=== PATIENT | female | born 1940 | race African-American/Black ===

== ENCOUNTER 2016-10-19 06:07 | Emergency (ER) | payer OTHER, MEDICARE ==
[~2016-10-19] VITALS: Ht 157.5 cm; Wt 68.0 kg
--- NOTE | ~2016-10-19 | EKG ---
[place] [address] [facility] [place] [address] ELECTROCARDIOGRAM REPORT Name: RADHA ALMANZA Room #: DEP [facility]#: [id number] Admission: 10/19/16 Attend Phys: Discharge: 10/19/16 Date of : 38 Report #: [id number] THIS REPORT FOR: //name// [facility] ED Test Date: 2016-10-19 Test Time: 06:28:33 Pat Name: RADHA ALMANZA Department: Room: Gender: F Electronic Equipment Set Up Operator: OLIVIA : 1940 Requested By: Chico Segura Order Number: [id number] MD: Manish Marin Measurements Intervals [place] Rate: 76 P: 54 [place]: 130 QRS: -27 QRSD: 82 T: 15 QT: 390 QTc: 439 Interpretive Statements Sinus rhythm Borderline left axis deviation Borderline T abnormalities, anterior leads Compared to ECG 05/14/2016 11:47:34 No significant changes Electronically Signed On 10-19-2016 13:51:05 OPTOMETRIC ASSISTANT by Manish Marin [email or web address] <ELECTRONICALLY SIGNED> By: Manish Marin MD, [facility] 10/19/16 1351 7 7 aMnish Marin MD, [facility] /EPI
[~2016-10-19 06:07] MED LIST: ASPIR 8181 MG PO; CIPRO500 MG PO; CIPROFLOXACIN500 M1 PO; DUONEB 2.5-0.5 M3 ML INH; FOSAMAX 70 MG T70 MG PO; GLUCOTROL5 MG PO; IRON325 PO; KEFLEX500 MG PO; KLOR-CON 1010 MEQ PO; LASIX 20 MG TAB20 MG PO; LEVOTHYROXINE 0.15MG PO; LIPITOR10 MG PO; NEURONTIN 300300 M1 PO; NORCO 5-325 TA1 EACH PO; PREDNISONE 5 MG5 M1 PO; ROCEPHIN 11 GM/1001 IV; VITAMIN D400 UNI2 PO
[2016-10-19] MEDS ORDERED: [UNRECOGNIZED DRUG - OTHER] IJ (06:45)
[2016-10-19 06:59] LABS: URINE BILIRUBIN NEGATIVE (Negative); URINE BLOOD NEGATIVE (Negative); URINE COLOR YELLOW; URINE GLUCOSE-RANDOM* NEGATIVE (Negative); URINE KETONES NEGATIVE (Negative); URINE LEUKOCYTES-REFLEX NEGATIVE (Negative); URINE PROTEIN (DIPSTICK) NEGATIVE (Negative)
[2016-10-19 07:09] LABS: HEMATOCRIT 36.2 % (37.0-47.0); HEMOGLOBIN 12.3 gm/dL (12.0-15.0); MCH 31.2 pg (26.0-34.0); MCV 91.7 fL (80.0-100.0); PLATELET COUNT 76 thou/uL (150-400); RBC 3.95 mil/uL (4.20-5.00); RDW 18.3 % (10.5-14.5); WBC 3.6 thou/uL (4.0-11.0)
[2016-10-19 07:17] LABS: MANUAL DIFF YES
[2016-10-19 07:20] LABS: ANION GAP 9 mmol/L (7-16); BUN 14 mg/dL (7-18); CALCIUM 8.2 mg/dL (8.5-10.1); CHLORIDE 114 mmol/L (98-107); CO2 24 mmol/L (21-32); CREATININE 0.9 mg/dL (0.6-1.3); GLUCOSE 114 mg/dL (70-99); POTASSIUM 4.8 mmol/L (3.5-5.1); SODIUM 147 mmol/L (136-145)
[2016-10-19 07:30] LABS: ALBUMIN 2.2 g/dL (3.4-5.0); ALKALINE PHOSPHATASE 236 U/L (46-116); MAGNESIUM 1.9 mg/dL (1.8-2.4); SGOT 140 U/L (15-37); SGPT 76 U/L (30-65); TOTAL BILIRUBIN 2.7 mg/dL (<0.1-1.0); TOTAL PROTEIN 6.5 g/dL (6.4-8.2); TROPONIN-I < 0.04 ng/mL (<0.04-0.07)
[2016-10-19 08:04] LABS: ABSOLUTE NEUTROPHILS 1.6 thou/uL (1.4-8.2); TOTAL CELL COUNT 100
[2016-10-19 08:05] LABS: ANISOCYTOSIS 1+; POIKILOCYTOSIS 1+
[2016-10-19 08:06] LABS: POLYCHROMASIA SLIGHT
[2016-10-19] MEDS ORDERED: LACTULOSE10 GM/152 PO (11:09)
[2016-10-19 11:11] VITALS: BP 110/70
== END 2016-10-19 11:30 | disposition home or self-care (01) ==
LOC: ER 06:07
PROVIDERS: Emergency Medicine
DX: K74.60 Unspecified cirrhosis of liver (principal); G93.40 Encephalopathy, unspecified; D86.9 Sarcoidosis, unspecified; E11.9 Type 2 diabetes mellitus without complications; M81.0 Age-related osteoporosis without current pathological fracture; Z88.0 Allergy status to penicillin

== ENCOUNTER 2017-01-08 16:57 | Inpatient (IN) | payer OTHER, MEDICARE ==
[~2017-01-08] VITALS: Ht 157.5 cm; Wt 81.3 kg
[~2017-01-08 16:57] MED LIST changes: +LACTULOSE10 GM/152 PO; +[UNRECOGNIZED DRUG - OTHER] IJ
[2017-01-08 17:00] VITALS: BP 107/51
[2017-01-08] MEDS ORDERED: LEVOTHYROXIN0.075 MG PO (18:19)
[2017-01-08 18:33] LABS: ABSOLUTE NEUTROPHILS 6.4 thou/uL (1.4-8.2); BASOPHILS 0.1 % (0.0-2.0); EOSINOPHILS 9.1 % (0.0-3.0); HEMATOCRIT 30.5 % (37.0-47.0); HEMOGLOBIN 10.8 gm/dL (12.0-15.0); LYMPHOCYTES 10.8 % (24.0-44.0); MCH 31.8 pg (26.0-34.0); MCHC 35.4 g/dL (28.0-37.0); MONOCYTES 5.6 % (1.0-8.0); POLYS 74.4 % (36.0-66.0); RBC 3.39 mil/uL (4.20-5.00); RDW 21.8 % (10.5-14.5); WBC 8.6 thou/uL (4.0-11.0)
[2017-01-08 18:34] LABS: MANUAL DIFF NO
[2017-01-08 18:37] LABS: CALCIUM 7.8 mg/dL (8.5-10.1); CREATININE 1.5 mg/dL (0.6-1.0); POTASSIUM 4.4 mmol/L (3.5-5.1)
[2017-01-08 18:48] LABS: ALBUMIN 1.5 g/dL (3.4-5.0); DIRECT BILIRUBIN 8.7 mg/dL (<0.1-0.3); TOTAL BILIRUBIN 11.3 mg/dL (<0.1-1.0); TOTAL PROTEIN 5.9 g/dL (6.4-8.2)
[2017-01-08 19:02] LABS: PLATELET COUNT 66 thou/uL (150-400); PLATELET ESTIMATE DECREASED
[2017-01-08 20:19] LABS: URINE BILIRUBIN 2+ (Negative); URINE BLOOD NEGATIVE (Negative); URINE COLOR YELLOW; URINE GLUCOSE-RANDOM* NEGATIVE (Negative); URINE KETONES NEGATIVE (Negative); URINE LEUKOCYTES-REFLEX 1+ (Negative); URINE PROTEIN (DIPSTICK) NEGATIVE (Negative); URINE SPECIFIC GRAVITY 1.015 (1.003-1.035)
[2017-01-08 20:34] LABS: CASTS None Seen /LPF (None Seen); SQUAMOUS 4-10 Moderate /LPF (0-3); URINE RBC 0-2 Rare /HPF (0-2)
[2017-01-08 20:35] LABS: AMORPHOUS URATES Many /LPF (None Seen)
[2017-01-08 21:59] LABS: APTT 38.5 Seconds (24.5-32.8); INR 1.8; PROTIME 19.1 Seconds (9.3-11.4)
[2017-01-08 22:57] VITALS: BP 105/50
[2017-01-08 23:37] VITALS: BP 109/54
[2017-01-09] MEDS ORDERED: XIFAXAN550 M1 PO (01:29)
[2017-01-09] MEDS ORDERED: URSODIOL300 MG PO (01:31)
[2017-01-09 04:05] VITALS: BP 107/49
[2017-01-09 07:25] VITALS: BP 99/53
[2017-01-09 12:11] VITALS: BP 120/58
[2017-01-09 16:49] VITALS: BP 127/76
[2017-01-09 19:31] VITALS: BP 109/67
[2017-01-10 03:48] VITALS: BP 112/62
[2017-01-10 06:58] LABS: HEMOGLOBIN 9.3 gm/dL (12.0-15.0); MCHC 35.9 g/dL (28.0-37.0); RDW 22.3 % (10.5-14.5)
[2017-01-10 07:00] LABS: ABSOLUTE NEUTROPHILS 3.1 thou/uL (1.4-8.2); BASOPHILS 0.4 % (0.0-2.0); EOSINOPHILS 17.3 % (0.0-3.0); LYMPHOCYTES 12.7 % (24.0-44.0); MCH 31.9 pg (26.0-34.0); MCV 88.9 fL (80.0-100.0); MONOCYTES 7.9 % (1.0-8.0); PLATELET COUNT 50 thou/uL (150-400); POLYS 61.7 % (36.0-66.0); RBC 2.92 mil/uL (4.20-5.00)
[2017-01-10 07:01] LABS: MANUAL DIFF NO
[2017-01-10 07:12] LABS: ALBUMIN 1.2 g/dL (3.4-5.0); CALCIUM 7.7 mg/dL (8.5-10.1); CREATININE 1.5 mg/dL (0.6-1.0); MAGNESIUM 1.9 mg/dL (1.8-2.4); POTASSIUM 3.8 mmol/L (3.5-5.1); TOTAL BILIRUBIN 8.6 mg/dL (<0.1-1.0)
[2017-01-10 08:00] VITALS: BP 89/42
[2017-01-10 09:04] LABS: TOTAL PROTEIN 5.3 g/dL (6.4-8.2)
[2017-01-10 11:30] VITALS: BP 111/57
[2017-01-10 15:33] VITALS: BP 132/49
[2017-01-10 18:50] VITALS: BP 104/51
[2017-01-11 04:01] LABS: ALBUMIN 1.2 g/dL (3.4-5.0); CALCIUM 7.7 mg/dL (8.5-10.1); CREATININE 1.5 mg/dL (0.6-1.0); POTASSIUM 4.1 mmol/L (3.5-5.1); TOTAL BILIRUBIN 8.5 mg/dL (<0.1-1.0); TOTAL PROTEIN 5.4 g/dL (6.4-8.2)
[2017-01-11 04:45] VITALS: BP 100/45
[2017-01-11 07:01] VITALS: BP 94/51
[2017-01-11 11:10] VITALS: BP 119/55
[2017-01-11 15:30] VITALS: BP 122/56
[2017-01-11 20:00] VITALS: BP 107/62
[2017-01-12 03:35] VITALS: BP 119/62
[2017-01-12 04:46] LABS: ALBUMIN 1.2 g/dL (3.4-5.0); CALCIUM 7.8 mg/dL (8.5-10.1); CREATININE 1.4 mg/dL (0.6-1.0); POTASSIUM 4.2 mmol/L (3.5-5.1); TOTAL BILIRUBIN 7.4 mg/dL (<0.1-1.0)
[2017-01-12 08:32] VITALS: BP 114/46
[2017-01-12 12:11] VITALS: BP 129/53
[2017-01-12 20:00] VITALS: BP 128/47
[2017-01-13 04:00] VITALS: BP 142/65
[2017-01-13 08:41] VITALS: BP 119/65
[2017-01-13 13:17] VITALS: BP 129/63
[2017-01-13 16:50] VITALS: BP 116/50
[2017-01-13 20:08] VITALS: BP 120/80
[2017-01-14 02:50] LABS: ABSOLUTE NEUTROPHILS 5.1 thou/uL (1.4-8.2); BASOPHILS 0.1 % (0.0-2.0); EOSINOPHILS 0.3 % (0.0-3.0); HEMATOCRIT 28.2 % (37.0-47.0); HEMOGLOBIN 9.9 gm/dL (12.0-15.0); LYMPHOCYTES 12.7 % (24.0-44.0); MCH 31.5 pg (26.0-34.0); MCHC 35.1 g/dL (28.0-37.0); MCV 89.7 fL (80.0-100.0); MONOCYTES 5.4 % (1.0-8.0); PLATELET COUNT 62 thou/uL (150-400); POLYS 81.5 % (36.0-66.0); RBC 3.14 mil/uL (4.20-5.00); RDW 22.8 % (10.5-14.5); WBC 6.2 thou/uL (4.0-11.0)
[2017-01-14 02:54] LABS: MANUAL DIFF NO
[2017-01-14 02:55] LABS: CALCIUM 8.2 mg/dL (8.5-10.1); CREATININE 1.1 mg/dL (0.6-1.0); POTASSIUM 4.2 mmol/L (3.5-5.1)
[2017-01-14 03:49] VITALS: BP 105/78
[2017-01-14 07:05] VITALS: BP 108/44
[2017-01-14 11:09] VITALS: BP 107/87
[2017-01-14] MEDS ORDERED: MACROBID 100 M100 M2 PO (11:53)
[2017-01-14] MEDS ORDERED: URSODIOL300 MG PO (11:58)
[2017-01-14] MEDS ORDERED: SPIRONOLACTONE25 M1 PO (11:58)
[2017-01-14] MEDS ORDERED: LASIX 40 MG TAB40 M1 PO (11:58)
[2017-01-14] MEDS ORDERED: MEDROLDOSEPACK PO (11:58)
[2017-01-14] MEDS ORDERED: OXYCODONE HCL 55 MG PO (11:58)
[2017-01-14] MEDS ORDERED: HUMALOG100 UNIT/1 SUBQ (11:58)
[2017-01-14] MEDS ORDERED: PANTOPRAZOLE SO40 M1 PO (11:58)
[2017-01-14] MEDS ORDERED: LACTULOSE10 GM/153 PO (11:58)
[2017-01-14] MEDS ORDERED: ASPIR 8181 MG PO (11:58)
[2017-01-14] MEDS ORDERED: PROBIOTIC1 EAC1 PO (11:58)
== END 2017-01-14 15:38 | DRG 689 ==
LOC: ER 16:57 → EROBS 21:38 → 4W 21:38
PROVIDERS: Emergency Medicine; Hospitalist; Internal Medicine; Nurse Practitioner
DX: N39.0 Urinary tract infection, site not specified (principal); G93.41 Metabolic encephalopathy; E43 Unspecified severe protein-calorie malnutrition; N17.9 Acute kidney failure, unspecified; E87.1 Hypo-osmolality and hyponatremia; E72.20 Disorder of urea cycle metabolism, unspecified; E03.9 Hypothyroidism, unspecified; E11.22 Type 2 diabetes mellitus with diabetic chronic kidney disease; B95.2 Enterococcus as the cause of diseases classified elsewhere; D64.9 Anemia, unspecified; N18.3 Chronic kidney disease, stage 3 (moderate); M81.0 Age-related osteoporosis without current pathological fracture; E80.6 Other disorders of bilirubin metabolism; E86.0 Dehydration; E88.09 Other disorders of plasma-protein metabolism, not elsewhere classified; K74.60 Unspecified cirrhosis of liver; D86.89 Sarcoidosis of other sites; E11.42 Type 2 diabetes mellitus with diabetic polyneuropathy; Z80.0 Family history of malignant neoplasm of digestive organs; Z79.82 Long term (current) use of aspirin; Z79.899 Other long term (current) drug therapy; Z68.32 Body mass index [BMI] 32.0-32.9, adult; Z88.0 Allergy status to penicillin
CPT/HCPCS: 10045

== ENCOUNTER 2017-01-26 13:41 | Inpatient (IN) | payer OTHER, MEDICARE ==
[~2017-01-26] VITALS: Ht 154.9 cm; Wt 74.9 kg
--- NOTE | ~2017-01-26 | S ---
[facility] [place] [address] SURGICAL PATH RPT PROCEDURE Name: ERMA ALMANZA Room #: 420-P DIS IN M.R.#: [id number] Admission: 01/26/17 Date of : 38 Discharge: 01/30/17 Report #: [id number] Path Case #: [id number] PATHOLOGY REPORT COLLECTION DATE: 01/29/2017 RECEIVED DATE: 01/29/2017 SUBMITTING PHYS: Dr. Kristina Escobar OTHER PHYS: Dr. Jefe Fam SPECIMEN(S) RECEIVED: A.Gastric bx * * * * * * * * * * * * FINAL DIAGNOSIS: Gastric mucosa, rule out H. pylori, endoscopic biopsy: - Mild chronic active gastritis with features of reactive gastropathy. - Negative for intestinal metaplasia or atrophy. - Negative for Helicobacter pylori. COMMENT: Helicobacter pylori immunohistochemical stain performed on block A1-negative. (IUV:mgr; d/t: 01/31/17) PATHOLOGIST: Brittany Donaldson M.D. REPORT ELECTRONICALLY SIGNED BY: Brittany Donaldson M.D. DATE/TIME: 01/31/2017 16:34 * * * * * * * * * * * * GROSS PATHOLOGY: Received in formalin labeled "Erma Almanza, gastric biopsy, rule out H pylori," is a segment of vasquez soft tissue measuring 0.4 cm in maximum dimension. The specimen is submitted entirely in cassette A1. (KAH; 01/30/2017) CLINICAL HISTORY: Rule out H. pylori INITIAL CPT CODE(S): A; 23462, 68958 Professional services performed by [facility] at [facility] [address], [place] [address] [facility] [address] [place] [address] SURGICAL PATH RPT PROCEDURE Name: ERMA ALMANZA Room #: 420-P DIS IN M.R.#: [id number] Admission: 01/26/17 Date of : 38 Discharge: 01/30/17 Report #: [id number] Path Case #: [id number] Technical services performed by [facility] at [address] [place] [address], [facility] [address] [address]. [facility] [address] [place] [address] PHONE: [phone] DIRECTOR: Viral Herrera M.D. * * * END OF REPORT * * *
--- NOTE | ~2017-01-26 | HC ---
[facility] [place] [address] CONSULTATION Name: RADHA ALMANZA Room #: 420-P ADM IN M.R.#: [id number] Admission: 01/26/17 Attend Phys: Jefe Workman MD Discharge: Date of : 39 Report #: [id number] THIS REPORT FOR: //name// CC: Kirstin Workman DATE OF SERVICE: 01/28/2017 HISTORY OF PRESENT ILLNESS: The patient is a 76-year-old female who was admitted with acute mental status changes. The patient has a history of sarcoidosis with cirrhosis and liver failure. She was noted to have readmission with worsening confusion. She has been diagnosed with an hepatic encephalopathy. CT of the head was negative. Gastroenterology has been involved. She had been started on Xifaxan in December but she thought it contributed to her lower extremity edema. She apparently had missed some days of lactulose and had worsening ammonia level. It was up to 133 with prior level of 60 last month. The patient also has had problems with right hip pain. She was seen by orthopedics, diagnosed with a right iliopsoas bursitis and tendinitis. She was noted to have been given a Medrol Dosepak and is currently on prednisone. She has had a significant functional decline and has had problems with confusion and disorientation with her encephalopathy. We are seeing her in rehabilitation medicine consultation. PAST MEDICAL HISTORY: Includes zxo-iecowvt-puilornqw diabetes mellitus, sarcoidosis of the liver, hypothyroidism, osteoporosis, neuropathy consistent with her sarcoidosis, recent urinary tract infection. She has abnormal liver enzymes. History of sarcoidosis of the lung. She does have cirrhosis. ALLERGIES: PENICILLIN G. MEDICATIONS: Please see the full medication listing. SOCIAL HISTORY: She lives in a house with her adult daughter. There are 5-6 steps to get in. The patient premorbidly was independent for ADLs and did not use a walker. Her daughter does work outside the home, but notes that there are several family members and that they would be able to assist. There is a son that is visiting here as well. REVIEW OF SYSTEMS: Did not offer any current complaints of chest pain, shortness of breath or abdominal discomfort. She does have some numbness of her distal lower extremities consistent with her sarcoidosis. She has the right hip pain, especially with hip flexion. Did not offer any complaints of headaches or any neurologic changes. PHYSICAL EXAMINATION: GENERAL: She is a 76-year-old -Surinamese female in no obvious distress. [address] [address] CONSULTATION Name: RADHA ALMANZA Room #: 420-P [facility] IN M.R.#: [id number] Admission: 01/26/17 Attend Phys: Jefe Workman MD Discharge: Date of : 39 Report #: [id number] She is alert, pleasant. She can follow basic 1 step commands, but has some problems with disorientation and timeframe issues. She tends to defer to her family members. VITAL SIGNS: Her temperature is 97.8, pulse 94, respirations 16, blood pressure 105/49. HEENT: Facies appeared to be symmetric. EXTREMITIES: Functional range of motion of both upper extremities with strength grade 4-/5. DTRs are trace to 1. In her lower extremities, she tends to favor flexing the right hip. Strength of the right lower extremity is probably grade 3+/5. Left lower extremity is probably 3+ as well. She may be 4-/5. DTRs are trace to 1. She does have trace edema. Upper extremities, there was no asterixis. Functionally, she is contact guard with sit to stand and she did ambulate 100 feet min assist with a front-wheeled walker. She does have decreased sensation in a stocking distribution in both lower extremities. ASSESSMENT: A 76-year-old -Surinamese female with the following problem list: 1. Hepatic encephalopathy. 2. Peripheral polyneuropathy. 3. Sarcoidosis with cirrhosis and history of liver failure. 4. Osteoporosis. 5. Right hip bursitis/tendinitis. 6. Diabetes mellitus. 7. Functional mobility, ADL and cognitive communication changes. PLAN: The patient is a candidate for an acute inpatient rehabilitation stay. From a preadmission screening perspective: 1. Prior level of function is well delineated above. 2. Expected level of improvement would be for the patient to become modified independent with transfers, mobility and ADLs, so that she can hopefully return back to her prior living situation. Would anticipate length of stay of probably 10-14 days, potentially longer if needed. 3. Evaluation of the patient's risk for clinical complications. She has multiple medical comorbidities as noted above. 4. Condition that caused the need for rehabilitation would be the hepatic encephalopathy and the peripheral neuropathy. 5. Treatments needed would include PT, OT and speech 1 hour per day each 5 days a week throughout the duration of the acute inpatient rehabilitation stay. 6. Anticipated discharge destination would be back to the home setting. 7. Would anticipate home healthcare therapies once she is ready for discharge. 8. The patient meets diagnostic criteria for an acute in-hospital inpatient rehabilitation stay. She meets medical necessity criteria. She does have multiple medical consultants that could continue to follow with her while she is on the rehab roche. This level of care would not be possible within a [facility] [address] [place] [address] CONSULTATION Name: RADHA ALMANZA Room #: 420-P [facility] IN ..#: [id number] Admission: 01/26/17 Attend Phys: Jefe Workman MD Discharge: Date of : 39 Report #: [id number] nursing facility setting. Gastroenterology is involved and orthopedics has seen her as well and internal medicine is involved. The patient does have the tolerance for an acute inpatient rehab stay and has appropriate discharge goals back to the home setting. <ELECTRONICALLY SIGNED> By: Syed Craven MD 01/29/17 1534 1541 1930 Syed Craven MD /nt
--- NOTE | ~2017-01-26 | P ---
[facility] [place] [address] PROCEDURE REPORT Name: RADHA ALMANZA Room #: 420-P ADM IN M.R.#: [id number] Admission: 01/26/17 Attend Phys: Jefe Workman MD Discharge: Date of : 39 Report #: [id number] THIS REPORT FOR: //name// CC: Kirstin Sanchez MD DATE OF SERVICE: 01/29/2017 PATIENT OF: Jefe Workman M.D. and Kirstin Fam M.D. INDICATION FOR PROCEDURE: This patient has a history of dysphagia. We are also going to evaluate her for esophageal varices as she has cirrhosis from her sarcoidosis. Informed consent for this procedure was obtained prior to the administration of any medication. The risks of the procedure which include bleeding, perforation, infection, complications of sedation and the possibility I could miss something have been explained to the patient. She has indicated her consent by signing. DESCRIPTION OF PROCEDURE: Propofol was slowly titrated before and during this procedure for patient comfort by the anesthesia service. The PartSimple upper videoscope was introduced through the upper esophageal sphincter and advanced under direct visualization to the second portion of the duodenum, almost to third portion. Findings were noted on withdrawal of the scope. The duodenal mucosa appears normal throughout its entirety. Pylorus, normal mucosa. Antrum, there is an atrophic appearing gastritis of the antrum. Biopsies obtained x 1 for histopathology to rule out H. pylori infection. Body, a portal hypertensive gastropathy appearance of the body of the stomach is noted. Cardia and fundus, in the fundus of the stomach the mucosa appears normal except for some mild portal hypertensive gastropathy. There is a dilated tortuous looking gastric varix, it is nonbleeding and without stigmata of recent bleed in the proximal fundus/cardia of the stomach. The scope was withdrawn into the esophagus. The patient does have a grade 2 esophageal varix extending just about 1-2 cm above the Z-line that may be in extension of the gastric varix. She has 2 other varices, one of which extends up into the distal esophagus about 4-5 cm and the other extends up above the mid esophagus. These are nonbleeding. They are grade 1-2, they have no stigmata of recent bleed. In the middle esophagus, there is the appearance of some possible mild Aimee. It is in a very limited area of the middle esophagus, but may be contributing to some of her dysphagia. The more proximal esophageal mucosa appears normal. The scope was withdrawn. The patient went to the recovery area in stable condition. She tolerated the procedure well. [address] [address] PROCEDURE REPORT Name: RADHA ALMANZA Room #: 420-P [facility] IN M.R.#: [id number] Admission: 01/26/17 Attend Phys: Jefe Workman MD Discharge: Date of : 39 Report #: [id number] IMPRESSION: 1. Possible Aimee esophagitis of mid esophagus. 2. Grade 1-2 esophageal varices as described above. 3. Greatly dilated proximal gastric varix, nonbleeding, none of the varices had stigmata of recent bleed and were not bleeding at the present time. 4. 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 5. Atrophic gastritis of the antrum, biopsy obtained. RECOMMENDATIONS: My recommendations were for her to resume her previous medication regimen. We will start her on a 2 g sodium diet. She may benefit from beta nuria therapy as prophylaxis against first variceal bleed. I do not believe that she is not on any type of beta nuria at this time. Continue proton pump inhibitors. Thank you very much once again for allowing me to participate in her care Dr. Fam and Dr. Workman. <ELECTRONICALLY SIGNED> By: Kristina Escobar DO 01/30/17 0741 1348 2104 Kirstina Escobar DO /nt
--- NOTE | ~2017-01-26 | EKG ---
[address] [place] [address] ELECTROCARDIOGRAM REPORT Name: CAMIRADHA Room #: 420-P [facility] IN M.R.#: [id number] Admission: 01/26/17 Attend Phys: Jefe Workman MD Discharge: Date of : 39 Report #: [id number] THIS REPORT FOR: //name// [facility] ED Test Date: 2017-01-26 Test Time: 14:17:20 Pat Name: RADHA ALMANZA Department: Room: [facility] Gender: F Prize Fighter: Lai : 1940 Requested By: Ranjeet Newman Order Number: [id number] MD: Miguelito San Measurements Intervals [place] Rate: 99 P: 61 [place]: 128 QRS: -24 QRSD: 84 T: 61 QT: 341 QTc: 438 Interpretive Statements Sinus rhythm Borderline left axis deviation Compared to ECG 10/19/2016 06:28:33 T-wave abnormality no longer present Electronically Signed On 01-26-2017 22:42:56 CDT by Miguelito San [email or web address] <ELECTRONICALLY SIGNED> By: Miguelito San MD 01/26/172 141 141 Miguelito San MD /MANDO
[~2017-01-26 13:41] MED LIST changes: +HUMALOG100 UNIT/1 SUBQ; +LACTULOSE10 GM/153 PO; +LASIX 40 MG TAB40 M1 PO; +LEVOTHYROXIN0.075 MG PO; +MACROBID 100 M100 M2 PO; +MEDROLDOSEPACK PO; +OXYCODONE HCL 55 MG PO; +PANTOPRAZOLE SO40 M1 PO; +PROBIOTIC1 EAC1 PO; +SPIRONOLACTONE25 M1 PO; +URSODIOL300 MG PO; +XIFAXAN550 M1 PO
[2017-01-26 13:42] VITALS: BP 148/78
[2017-01-26 14:17] LABS: HEMATOCRIT 30.9 % (37.0-47.0); HEMOGLOBIN 10.9 gm/dL (12.0-15.0); MCH 32.9 pg (26.0-34.0); MCHC 35.1 g/dL (28.0-37.0); MCV 93.9 fL (80.0-100.0); PLATELET COUNT 131 thou/uL (150-400); RBC 3.29 mil/uL (4.20-5.00); RDW 27.9 % (10.5-14.5); WBC 7.6 thou/uL (4.0-11.0)
[2017-01-26 14:18] LABS: MANUAL DIFF YES; URINE BILIRUBIN 2+ (Negative); URINE BLOOD NEGATIVE (Negative); URINE COLOR YELLOW; URINE GLUCOSE-RANDOM* NEGATIVE (Negative); URINE KETONES NEGATIVE (Negative); URINE LEUKOCYTES-REFLEX TRACE (Negative); URINE PROTEIN (DIPSTICK) NEGATIVE (Negative); URINE UROBILINOGEN >= 8.0 E.U./dl (0.2-1.0)
[2017-01-26 14:24] LABS: ICTOTEST (BILI CONFIRMATORY) Positive (Negative)
[2017-01-26 14:34] LABS: APTT 27.8 Seconds (24.5-32.8); INR 1.4; PROTIME 14.7 Seconds (9.3-11.4)
[2017-01-26 15:06] LABS: ABSOLUTE NEUTROPHILS 6.5 thou/uL (1.4-8.2); TOTAL CELL COUNT 100
[2017-01-26 15:07] LABS: TARGET CELLS 1+
[2017-01-26 15:08] LABS: ANISOCYTOSIS 2+; POLYCHROMASIA 1+
[2017-01-26 15:12] LABS: CALCIUM 8.1 mg/dL (8.5-10.1); CREATININE 1.4 mg/dL (0.6-1.0); POTASSIUM 3.5 mmol/L (3.5-5.1)
[2017-01-26 15:17] LABS: ALBUMIN 1.8 g/dL (3.4-5.0); TOTAL BILIRUBIN 8.8 mg/dL (<0.1-1.0); TOTAL PROTEIN 6.3 g/dL (6.4-8.2)
[2017-01-26 17:53] VITALS: BP 129/112
[2017-01-26 20:00] VITALS: BP 113/86
[2017-01-27 04:00] VITALS: BP 108/47
[2017-01-27 06:55] LABS: ALBUMIN 1.3 g/dL (3.4-5.0); CALCIUM 7.8 mg/dL (8.5-10.1); CREATININE 1.1 mg/dL (0.6-1.0); POTASSIUM 3.2 mmol/L (3.5-5.1)
[2017-01-27 06:58] LABS: TOTAL PROTEIN 4.8 g/dL (6.4-8.2)
[2017-01-27 07:58] VITALS: BP 158/66
[2017-01-27 16:20] VITALS: BP 98/52
[2017-01-27 20:00] VITALS: BP 106/56
[2017-01-28 04:00] VITALS: BP 108/59
[2017-01-28 05:23] LABS: ABSOLUTE NEUTROPHILS 4.6 thou/uL (1.4-8.2); BASOPHILS 0.1 % (0.0-2.0); EOSINOPHILS 0.2 % (0.0-3.0); HEMATOCRIT 27.6 % (37.0-47.0); HEMOGLOBIN 9.8 gm/dL (12.0-15.0); LYMPHOCYTES 11.5 % (24.0-44.0); MCH 33.7 pg (26.0-34.0); MCHC 35.5 g/dL (28.0-37.0); MCV 94.8 fL (80.0-100.0); MONOCYTES 11.2 % (1.0-8.0); RBC 2.91 mil/uL (4.20-5.00); RDW 26.3 % (10.5-14.5); WBC 5.9 thou/uL (4.0-11.0)
[2017-01-28 05:43] LABS: MANUAL DIFF NO
[2017-01-28 05:47] LABS: ALBUMIN 1.5 g/dL (3.4-5.0); CREATININE 1.3 mg/dL (0.6-1.0); MAGNESIUM 1.7 mg/dL (1.8-2.4); POTASSIUM 3.8 mmol/L (3.5-5.1); TOTAL BILIRUBIN 8.8 mg/dL (<0.1-1.0)
[2017-01-28 06:09] LABS: TOTAL PROTEIN 5.7 g/dL (6.4-8.2)
[2017-01-28 07:30] VITALS: BP 105/47
[2017-01-28 07:41] LABS: ANISOCYTOSIS 2+; PLATELET COUNT 67 thou/uL (150-400)
[2017-01-28 15:31] VITALS: BP 115/55
[2017-01-28 20:00] VITALS: BP 113/54
[2017-01-29 04:00] VITALS: BP 105/58
[2017-01-29 07:34] VITALS: BP 95/44
[2017-01-29 16:11] VITALS: BP 125/63
[2017-01-29 20:00] VITALS: BP 107/54
[2017-01-30 05:00] VITALS: BP 113/47
[2017-01-30 05:29] LABS: HEMATOCRIT 30.1 % (37.0-47.0); HEMOGLOBIN 10.4 gm/dL (12.0-15.0); MCH 33.3 pg (26.0-34.0); MCHC 34.4 g/dL (28.0-37.0); MCV 96.7 fL (80.0-100.0); RBC 3.11 mil/uL (4.20-5.00); WBC 4.2 thou/uL (4.0-11.0)
[2017-01-30 05:47] LABS: ALBUMIN 1.5 g/dL (3.4-5.0); CALCIUM 7.6 mg/dL (8.5-10.1); TOTAL PROTEIN 5.4 g/dL (6.4-8.2)
[2017-01-30 05:49] LABS: DIRECT BILIRUBIN 5.7 mg/dL (<0.1-0.3)
[2017-01-30 06:02] LABS: ALKALINE PHOSPHATASE ND U/L (46-116); SGOT ND U/L (15-37); SGPT ND U/L (30-65); TOTAL BILIRUBIN ND mg/dL (<0.1-1.0)
[2017-01-30 06:03] LABS: ALBUMIN ND g/dL (3.4-5.0); TOTAL PROTEIN ND g/dL (6.4-8.2)
[2017-01-30 07:39] VITALS: BP 90/34
[2017-01-30] MEDS ORDERED: NYSTATIN 1100000 U/M SW&SWALLOW (12:02)
[2017-01-30] MEDS ORDERED: PROPRANOLOL 1010 MG PO (12:02)
== END 2017-01-30 14:43 | DRG 441 ==
LOC: ER 13:41 → 4E 15:44 → EROBS 15:44 → 4E 16:31
PROVIDERS: Internal Medicine; Internal Medicine Endocrinology, Diabetes & Metabolism; Internal Medicine Gastroenterology; Physician Assistant
PROC: 0W9G3ZZ Drainage of Peritoneal Cavity, Percutaneous Approach (ICD-10-PCS; 2017-01-28)
PROC: 0DB68ZX Excision of Stomach, Via Natural or Artificial Opening Endoscopic, Diagnostic (ICD-10-PCS; principal; 2017-01-29)
DX: K72.90 Hepatic failure, unspecified without coma (principal); E43 Unspecified severe protein-calorie malnutrition; N17.0 Acute kidney failure with tubular necrosis; I85.00 Esophageal varices without bleeding; K76.6 Portal hypertension; K74.60 Unspecified cirrhosis of liver; E03.9 Hypothyroidism, unspecified; M81.0 Age-related osteoporosis without current pathological fracture; E11.42 Type 2 diabetes mellitus with diabetic polyneuropathy; D86.9 Sarcoidosis, unspecified; M70.71 Other bursitis of hip, right hip; M76.9 Unspecified enthesopathy, lower limb, excluding foot; E87.6 Hypokalemia; K31.89 Other diseases of stomach and duodenum; K29.40 Chronic atrophic gastritis without bleeding; T40.601A Poisoning by unspecified narcotics, accidental (unintentional), initial encounter; Z87.440 Personal history of urinary (tract) infections; Y92.89 Other specified places as the place of occurrence of the external cause; Z88.0 Allergy status to penicillin; D64.9 Anemia, unspecified
CPT/HCPCS: 10183; 62110; 70005

== ENCOUNTER 2017-01-30 12:23 | Inpatient (IN) | payer OTHER, MEDICARE ==
[~2017-01-30] VITALS: Ht 157.5 cm; Wt 74.5 kg
--- NOTE | ~2017-01-30 | HC ---
[facility] [place] [address] CONSULTATION Name: RADHA ALMANZA Room #: 513-P [facility] IN M.R.#: [id number] Admission: 01/30/17 Attend Phys: Syed Craven MD Discharge: 02/03/17 Date of : 39 Report #: [id number] THIS REPORT FOR: //name// CC: Syed Daleyy Sarwat DATE OF SERVICE: 02/01/2017 ATTENDING PHYSICIAN: Syed Craven M.D. STUDY ABROAD ADVISOR: Jigar Arizmendi, PhD. CLINICAL PRESENTATION: The patient is a 76-year-old -Citizen Of [place] female admitted to the rehabilitation unit at [facility] for comprehensive inpatient rehabilitation program to improve functional mobility, activities of daily living and self-care and mental status secondary to hepatic encephalopathy. Her diagnoses at admission also included peripheral polyneuropathy, sarcoidosis with cirrhosis and history of liver failure, osteoporosis, right hip bursitis with tendonitis; greater dilated proximal gastric varix, nonbleeding; portal hypertensive gastropathy of the body of the stomach, possible Aimee esophagitis at the mid esophagus, grade 1-2 esophageal varices, diabetes mellitus and functional mobility, ADL and cognitive communication deficits. Prior to her admission, the patient was reported to have been living with her daughter. She experienced confusion and disorientation leading to her being brought to the hospital. A complete description of her medical condition and history can be found in her medical record. Neuropsychological consultation was requested to provide assistance in the assessment of cognitive and emotional status and to provide recommendations and services. Prior to this most recent admission, she was living with the assistance of her daughter in her home. The patient has 2 children. She is a high school graduate with 1 year of college. She was employed for [employer] for 18 years and the [employer] for 10 years prior to her senior living. There is no prior history of treatment for anxiety or depression. There is also no history of alcohol/drug abuse. TECHNIQUES UTILIZED: Clinical interview, review of medical records, staff consultation and behavioral observation, mini mental status exam 2 standard version, calibrated ideational fluency assessment (letter and category), family interview -- son. EXAMINATION FINDINGS: The patient was alert and cooperative with the assessment. She had difficulty in describing the reason for her hospitalization. She reports that she had swollen legs and fluid making it [address] [address] CONSULTATION Name: RADHA ALMANZA Room #: 513-P [facility] IN M.R.#: [id number] Admission: 01/30/17 Attend Phys: Syed Craven MD Discharge: 02/03/17 Date of : 39 Report #: [id number] difficult for her to walk. Pain in her legs was also reported. She does not present with aphasia. There is no report of auditory or visual hallucinations. Her thoughts are logical and goal oriented. Her performance on the MMSE 2, brief version, suggests mild impairment with immediate memory. She was 13 of 16, which is a T score 37 and percentile rank at 10. The patient was 3/3 for initial registration, 5/5 for orientation to time and 5/[address]. She was 0/3 for immediate recall of 3 items after a brief time delay and distraction. Her performance on the MMSE 2 standard version deteriorated to a raw score 21 of 30, T score of 27 and percentile rank of 1, which suggests moderate impairment. She was 1/5 for serial sevens, 2/2 for naming, 1/1 for repetition. She was 2/3 for immediate recall of 3 items after a brief time delay and distraction. The patient was able to read and follow a single command and could dictate a sentence. She was unable to draw a simple geometric design secondary to severe tremor in both hands. Her performance on letter fluency was extremely low with a raw score of 9 and a T score 22. Category fluency was slightly better with a raw score 22 and a T score of 28. Total verbal fluency was extremely low with a raw score of 31 and a T score of 19. The patient was driving, but with reduced frequency prior to her admission. She was able to prepare meals and was managing her own medication. DIAGNOSTIC IMPRESSION: Neurocognitive disorder -- unspecified, without behavior disorder -- extent to be determined, moderate at this time. RECOMMENDATIONS: The patient is presenting with impairment in cognitive functioning that indicates deficits in attention/concentration, immediate recall and higher level executive functioning. She will likely require assistance with medical and manager financial services at this time. The patient should discontinue driving. A followup neuropsychological evaluation may be of benefit to clarify the severity of cognitive deficits. She appears to have had delirium secondary to ammonia levels, which is now resolved. However, neurocognitive deficits remain indicating concerns about safety. Thank you very much for allowing me to provide the consultation on this patient. <ELECTRONICALLY SIGNED> By: Jigar Arizmendi, PhD 02/05/17 1757 1547 0215 Jigar Arizmendi, PhD /nt
--- NOTE | ~2017-01-30 | D ---
[facility] [place] [address] DISCHARGE SUMMARY Name: RADHA ALMANZA Room #: 513-P [facility] IN M.R.#: [id number] Admission: 01/30/17 Attend Phys: Syed Craven MD Discharge: 02/03/17 Date of : 39 Report #: [id number] THIS REPORT FOR: //name// CC: Syed Fam DATE OF SERVICE: 02/03/2017 The patient is a 76-year-old -Tai[place]ese female, originally admitted with acute mental status changes. She has a history of sarcoidosis with cirrhosis and liver failure. She was diagnosed with an hepatic encephalopathy. CT of the head was negative. Gastroenterology was involved. She had been started on Xifaxan in December that she thought contributed to her lower extremity edema. She was noted to have significant functional decline with problems with confusion, disorientation with her encephalopathy. She had an EGD that showed grade 1-2 esophageal varices, greatly dilated proximal gastric varix nonbleeding, portal hypertensive gastropathy of the body of the stomach, atrophic gastritis of the antrum. The patient was noted to have hepatic encephalopathy with peripheral neuropathy, sarcoidosis with cirrhosis and history of liver failure. She was admitted for acute in-hospital inpatient rehabilitation. Please see the full admission note dictation. HOSPITAL COURSE: The patient was involved in the inpatient rehabilitation program. She was progressing and doing well with her therapies. She improved to transferring with min to contact guard assistance and she was ambulating up to 125 feet with a front-wheeled walker. In occupational therapy, she had improved from max to mod assist for lower body dressing. In speech therapy, she is noted to have sola-xe-kvpxhrcm comprehensive deficits. This morning, she was noted to have a significant mental status change, became lethargic. Stat labs were ordered as well as a CT scan. Hospitalist group was notified. Neurology was consulted and the plan was to transfer off the rehab roche with acute mental status changes for further medical workup and evaluation. DISCHARGE DIAGNOSES: Include: 1. Hepatic encephalopathy. 2. Peripheral polyneuropathy. 3. Sarcoidosis with cirrhosis and history of liver failure. 4. Osteoporosis. 5. Right hip bursitis with tendinitis. 6. Greatly dilated proximal gastric varix nonbleeding. 7. 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 8. Possible Aimee esophagitis. 9. Grade 1-2 esophageal varices. 10. Diabetes mellitus. [address] [address] DISCHARGE SUMMARY Name: RADHA ALMANZA Room #: 513-P DIS IN M.R.#: [id number] Admission: 01/30/17 Attend Phys: Syed Craven MD Discharge: 02/03/17 Date of : 39 Report #: [id number] Discharge medications and activity level, etc., all as per the accepting service. By: 1029 1053 Syed Craven MD /idris
--- NOTE | ~2017-01-30 | EKG ---
[address] [place] [address] ELECTROCARDIOGRAM REPORT Name: RADHA ALMANZA Room #: 513- ADM IN M.R.#: [id number] Admission: 01/30/17 Attend Phys: Syed Craven MD Discharge: Date of : 39 Report #: [id number] THIS REPORT FOR: //name// [facility] Test Date: 2017-02-03 Test Time: 08:00:13 Pat Name: RADHA ALMANZA Department: Room: 513 Gender: F Coal Sampler: deena : 1940 Requested By: Syed Craven Order Number: [id number] MD: Manish Marin Measurements Intervals [place] Rate: 83 P: 83 [place]: 126 QRS: -4 QRSD: 102 T: 60 QT: 362 QTc: 426 Interpretive Statements Sinus rhythm Borderline low voltage, extremity leads Baseline wander in lead(s) III,aVL Compared to ECG 01/26/2017 14:17:20 No significant changes Electronically Signed On 02-03-2017 8:56:23 CDT by Manish Marin [email or web address] <ELECTRONICALLY SIGNED> By: Manish Marin MD, [facility] 02/03/17 0856 08 08 Manish Marin MD, [facility] /EPI
--- NOTE | ~2017-01-30 | H ---
[facility] [place] [address] HISTORY AND PHYSICAL Name: RADHA ALMANZA Room #: 513-P [facility] IN M.R.#: [id number] Admission: 01/30/17 Attend Phys: Syed Craven MD Discharge: 02/03/17 Date of : 39 Report #: [id number] THIS REPORT FOR: //name// CC: Syed Fam DATE OF SERVICE: 01/30/2017 HISTORY OF PRESENT ILLNESS: The patient is a 76-year-old -[place] female originally admitted to [facility] with acute mental status changes. She has a history of sarcoidosis with cirrhosis and liver failure. She was noted to have readmission with worsening confusion. She was diagnosed with an hepatic encephalopathy. CT of the head was negative. Gastroenterology has been involved. She had been started on Xifaxan in December that she thought contributed to her lower extremity edema. She apparently had missed some days of lactulose and had worsening ammonia level. It was up to 133 with a prior level of 60 last month. She also had problems with right hip pain, was seen by orthopedics and diagnosed with a right iliopsoas bursitis and tendinitis. She was noted to having given a Medrol Dosepak and was on prednisone. She was noted to have a significant functional decline with problems with confusion, disorientation with her encephalopathy. Prior to discharge, she underwent an EGD that showed possible Aimee esophagitis of the mid esophagitis, grade 1-2 esophageal varices, greatly dilated proximal gastric varix nonbleeding, portal hypertensive gastropathy of the body of the stomach, atrophic gastritis of the antrum. PAST MEDICAL HISTORY: Includes aqh-ntakows-gdsqsmmge diabetes mellitus, sarcoidosis of the liver, hypothyroidism, osteoporosis, neuropathy consistent with her sarcoidosis, recent urinary tract infection, had normal liver enzymes, cirrhosis. ALLERGIES: PENICILLIN G. MEDICATIONS: Please see the full medication listing. Each of these was individually reconciled upon admission and includes her regular medications, over the counters, vitamins, minerals, etc. SOCIAL HISTORY: Lives in a house with her adult daughter. There are 5-6 steps in. The patient was premorbidly independent for ADLs and did not use a walker. Her daughter does work outside the home, but notes that there are several family members and that they would be able to assist. There is a son that is involved as well. REVIEW OF SYSTEMS: No current complaints of chest pain, shortness of breath, abdominal discomfort. She has numbness of her distal lower extremities consistent with her sarcoidosis. She has right hip pain, especially with hip [address] [address] HISTORY AND PHYSICAL Name: RADHA ALMANZA Room #: 513-P [facility] IN M.R.#: [id number] Admission: 01/30/17 Attend Phys: Syed Craven MD Discharge: 02/03/17 Date of : 39 Report #: [id number] flexion that appears to be improving. No complaints of headache this morning. No other focal extremity pain complaints. PHYSICAL EXAMINATION: GENERAL: She is a 76-year-old -[place] female in no obvious distress. VITAL SIGNS: Temperature 97.6, pulse 57, respirations 18, blood pressure 92/51. NEUROLOGIC: She is alert, pleasant, follows basic 1 step commands without difficulty. There is some latency to her responses and she needs some reversible cues. Facies appeared to be symmetric. CHEST: She might have some decreased diffuse breath sounds. CARDIOVASCULAR: Sounded regular rate and rhythm. ABDOMEN: Soft, bowel sounds positive. GENITOURINARY AND RECTAL: Deferred. EXTREMITIES: She has functional range of motion of both upper extremities with strength grade 4-/5. Lower extremities: She tends to favor flexing the right hip. It appears improved from before. Strength of the right lower extremity is a grade 3+/5. Lower extremities, probably 3+ as well to 4-. DTRs are trace to 1. She does have trace distal lower extremity edema. Functionally, she has been contact guard with basic sit to stand and has been ambulating a short distance with a front-wheeled walker. She does have decreased sensation in a stocking distribution in both lower extremities. ASSESSMENT: A 76-year-old -[place] female with the following problem list: 1. Hepatic encephalopathy. 2. Peripheral polyneuropathy. 3. Sarcoidosis with cirrhosis and history of liver failure. 4. Osteoporosis. 5. Right hip bursitis with tendinitis that appears to be improving. 6. Greatly dilated proximal gastric varix nonbleeding. 7. 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 8. Possible Aimee esophagitis of the mid esophagus. 9. Grade 1 to 2 esophageal varices. 10. Diabetes mellitus. 11. Functional mobility, ADL and cognitive communication changes. PLAN: The patient is admitted for an acute in-hospital inpatient rehabilitation stay. From a post-admission physician evaluation perspective, there are no relevant changes since the preadmission screening. Please see the above review of prior and current medical and functional conditions and comorbidities. Please see the patient's prior and current functional status. As far as risk of complications, the patient has multiple medical comorbidities as noted above. Initial plan of care involves the interdisciplinary acute inpatient rehabilitation program with the goal of maximizing the patient's functional independence, so that she can hopefully return back to her prior living situation. Prognosis is reasonably good with estimated length of stay probably [facility] [address] [place] [address] HISTORY AND PHYSICAL Name: RADHA ALMANZA BLANKA Room #: 513-P [facility] IN M.R.#: [id number] Admission: 01/30/17 Attend Phys: Syed Craven MD Discharge: 02/03/17 Date of : 39 Report #: [id number] at least 10 days to 2 weeks and likely longer if warranted. Potential barriers would include her multiple medical comorbidities and decreased functional status. <ELECTRONICALLY SIGNED> By: Syed Craven MD 02/04/17 1157 0918 1205 Syed Craven MD /nt
--- NOTE | ~2017-01-30 | PLAN ---
[facility] [place] [address] REHAB UNIT PLAN OF CARE Name: RADHA ALMANZA Room #: 513-P ADM IN M.R.#: [id number] Admission: 01/30/17 Attend Phys: Syed Craven MD Discharge: Date of : 39 Report #: [id number] THIS REPORT FOR: //name// CC: Syed Fam DATE OF SERVICE: 02/01/2017 PROGRESS NOTE/OVERALL PLAN OF CARE The patient was seen back earlier. She was in no distress. Last recorded temperature 36.5, pulse 65, respirations 20, blood pressure 100/37. She has been continent of urine. There is some as before. Transfers min assist. She ambulated min assist 115 feet with a front wheeled walker. Lower extremity dressing is max assist. She has mild to moderate comprehensive deficits. ASSESSMENT: 1. Hepatic encephalopathy. 2. Peripheral polyneuropathy. 3. Sarcoidosis with cirrhosis and history of liver failure. 4. Osteoporosis. 5. Right hip bursitis/tendinitis that appears to be improving. 6. Greatly dilated proximal gastric varix, nonbleeding. 7. 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 8. Possible Aimee esophagitis of the mid esophagus. 9. Grade 1-2 esophageal varices. 10. Diabetes mellitus. PLAN: The overall plan of care is based on the preadmission screen, post-admission physician evaluation and information garnered from therapy assessments. 1. Estimated length of stay is probably at least 10 days to 2 weeks and likely longer if warranted. 2. Medical prognosis is reasonably good. 3. Anticipated interventions include the interdisciplinary acute inpatient rehabilitation program with PT and OT and speech, rehab nursing assisting regarding medication management, skin care prophylaxis, bowel and bladder issues and nursing education. We will have the interior design consultant physicians involved as well. 4. Anticipated functional outcomes would be for the patient to become modified independent with transfers and mobility issues at a walker level and to improve further as far as cognitive issues, so that she can return back to her prior living situation. 5. Discharge destination would be going home with her adult daughter. 6. Expected therapy by discipline includes PT and OT and speech 1 hour per day [address] [address] REHAB UNIT PLAN OF CARE Name: RADHA ALMANZA Room #: 513-P [facility] IN M.R.#: [id number] Admission: 01/30/17 Attend Phys: Syed Craven MD Discharge: Date of : 39 Report #: [id number] each 5 days a week throughout the duration of the acute inpatient rehabilitation stay. By: 0836 [id number] Syed Craven MD /nt
[~2017-01-30 12:23] MED LIST changes: +NYSTATIN 1100000 U/M SW&SWALLOW; +PROPRANOLOL 1010 MG PO
[2017-01-30 14:45] VITALS: BP 94/49
[2017-01-31 04:57] VITALS: BP 92/51
[2017-01-31 05:03] LABS: HEMATOCRIT 29.9 % (37.0-47.0); HEMOGLOBIN 10.4 gm/dL (12.0-15.0); MCH 33.9 pg (26.0-34.0); MCHC 34.7 g/dL (28.0-37.0); MCV 97.7 fL (80.0-100.0); RBC 3.07 mil/uL (4.20-5.00); RDW 26.1 % (10.5-14.5); WBC 3.6 thou/uL (4.0-11.0)
[2017-01-31 05:14] LABS: ALBUMIN 1.5 g/dL (3.4-5.0); CALCIUM 7.8 mg/dL (8.5-10.1); CREATININE 1.2 mg/dL (0.6-1.0); TOTAL BILIRUBIN 5.8 mg/dL (<0.1-1.0); TOTAL PROTEIN 5.2 g/dL (6.4-8.2)
[2017-01-31 09:28] VITALS: BP 98/56
[2017-01-31 15:35] VITALS: BP 91/44
[2017-01-31 21:00] VITALS: BP 96/53
[2017-02-01 02:10] LABS: GLYCOHEMOGLOBIN (HGB A1C) 4.8 % (4.8-5.6)
[2017-02-01 04:35] LABS: HEMATOCRIT 29.2 % (37.0-47.0); HEMOGLOBIN 10.2 gm/dL (12.0-15.0); MCH 33.9 pg (26.0-34.0); MCHC 34.9 g/dL (28.0-37.0); MCV 97.1 fL (80.0-100.0); RBC 3.01 mil/uL (4.20-5.00); RDW 26.3 % (10.5-14.5); WBC 3.6 thou/uL (4.0-11.0)
[2017-02-01 04:40] VITALS: BP 100/37
[2017-02-01 05:04] LABS: ALBUMIN 1.4 g/dL (3.4-5.0)
[2017-02-01 05:26] LABS: CALCIUM 7.7 mg/dL (8.5-10.1); CREATININE 1.2 mg/dL (0.6-1.0); POTASSIUM 4.3 mmol/L (3.5-5.1); TOTAL BILIRUBIN 5.6 mg/dL (<0.1-1.0)
[2017-02-01 16:01] VITALS: BP 104/37
[2017-02-02 04:36] VITALS: BP 112/40
[2017-02-02 09:36] VITALS: BP 93/40
[2017-02-02 16:34] VITALS: BP 162/47
[2017-02-02 21:00] VITALS: BP 96/49
[2017-02-03 04:14] VITALS: BP 106/43
[2017-02-03 07:45] VITALS: BP 104/46
[2017-02-03 08:10] LABS: MCH 34.1 pg (26.0-34.0)
[2017-02-03 08:12] LABS: HEMATOCRIT 28.8 % (37.0-47.0); HEMOGLOBIN 10.1 gm/dL (12.0-15.0); MCHC 35.2 g/dL (28.0-37.0); MCV 96.9 fL (80.0-100.0); RBC 2.97 mil/uL (4.20-5.00); RDW 26.3 % (10.5-14.5); WBC 3.9 thou/uL (4.0-11.0)
[2017-02-03 08:13] LABS: MANUAL DIFF YES
[2017-02-03 08:28] LABS: CALCIUM 7.8 mg/dL (8.5-10.1); CREATININE 1.4 mg/dL (0.6-1.0); POTASSIUM 4.2 mmol/L (3.5-5.1)
[2017-02-03 08:35] LABS: ALBUMIN 1.4 g/dL (3.4-5.0); TOTAL BILIRUBIN 4.8 mg/dL (<0.1-1.0); TOTAL PROTEIN 5.3 g/dL (6.4-8.2)
[2017-02-03 08:40] LABS: MAGNESIUM 1.8 mg/dL (1.8-2.4)
[2017-02-03 08:53] LABS: INR 1.5
[2017-02-03 09:30] LABS: TOTAL CELL COUNT 100
[2017-02-03 09:31] LABS: ANISOCYTOSIS 2+; HYPOCHROMASIA 1+; MICROCYTES 2+; PLATELET ESTIMATE MARKEDLY DECREASED
[2017-02-03 09:33] LABS: PLATELET COUNT 46 thou/uL (150-400)
== END 2017-02-03 09:23 | disposition short-term general hospital (02) | DRG 441 ==
PROVIDERS: Family Medicine; Nurse Practitioner; Physical Medicine & Rehabilitation
DX: K72.90 Hepatic failure, unspecified without coma (principal); E43 Unspecified severe protein-calorie malnutrition; K76.6 Portal hypertension; B37.81 Candidal esophagitis; I85.00 Esophageal varices without bleeding; N17.9 Acute kidney failure, unspecified; E11.40 Type 2 diabetes mellitus with diabetic neuropathy, unspecified; M81.0 Age-related osteoporosis without current pathological fracture; D86.9 Sarcoidosis, unspecified; K74.60 Unspecified cirrhosis of liver; M71.551 Other bursitis, not elsewhere classified, right hip; I86.4 Gastric varices; K31.89 Other diseases of stomach and duodenum; I95.9 Hypotension, unspecified; E03.9 Hypothyroidism, unspecified; E87.6 Hypokalemia; Z68.30 Body mass index [BMI] 30.0-30.9, adult; Z88.0 Allergy status to penicillin
CPT/HCPCS: 10112

== ENCOUNTER 2017-02-03 08:29 | Inpatient (IN) | payer OTHER, MEDICARE ==
[~2017-02-03] VITALS: Ht 157.5 cm; Wt 86.5 kg
[2017-02-03] VITALS (14 sets, daily range): BP systolic 91–141; BP diastolic 41–86
--- NOTE | ~2017-02-03 | EEG ---
[facility] [place] [address] ELECTROENCEPHALOGRAM Name: RADHA ALMANZA Room #: 453-P ADM IN M.R.#: [id number] Admission: 02/03/17 Attend Phys: Edith Encinas MD Discharge: Date of : 39 Report #: [id number] THIS REPORT FOR: //name// CC: Kirstin Encinas DATE OF SERVICE: 02/05/2017 The patient is being evaluated for possibility of encephalopathy. EEG was done by placing the electrodes by standard 10-20 system of electrode placement. Both referential and sequential montages were used for recording. Background activity in this patient's EEG is about 7 Hz and 15 microvolts. This is a symmetrical activity. Photic stimulation is unremarkable. No active epileptiform activity was noticed during this record. IMPRESSION: This is an abnormal EEG, which would be consistent with a diagnosis of encephalopathy. However, the finding is nonspecific. Therefore, clinical correlation is recommended. Thank you very much for this referral. <ELECTRONICALLY SIGNED> By: Franky Marcum MD 02/08/17 1227 1647 1703 Franky Marcum MD /nt
--- NOTE | ~2017-02-03 | EEG ---
[facility] [place] [address] ELECTROENCEPHALOGRAM Name: RADHA ALMANZA Room #: 453-P ADM IN M.R.#: [id number] Admission: 02/03/17 Attend Phys: Edith Encinas MD Discharge: Date of : 39 Report #: [id number] THIS REPORT FOR: //name// CC: Kirstin Encinas DATE OF SERVICE: 02/03/2017 This patient is being evaluated for unresponsiveness. EEG was done by placing the electrodes by standard 10-20 system of electrode placement. Both referential and sequential montages were used for recording. Background activity in this patient is difficult to assess because it is masked by a lot of muscle artifact. It appeared to be slow and it appeared to be about 5-6 Hz and 30 microvolts. I do not see any active epileptiform activity, but I cannot fully exclude that because this patient has a lot of artifact. IMPRESSION: This patient's EEG does not appear to be showing any active epileptiform activity, however. No active seizure activity appeared to be present, but that is fully difficult to exclude because of a lot of artifact present in the patient's EEG. Thank you very much for this referral. <ELECTRONICALLY SIGNED> By: Franky Marcum MD 02/08/17 1227 1738 1842 Franky Marcum MD /nt
--- NOTE | ~2017-02-03 | H ---
[facility] [place] [address] HISTORY AND PHYSICAL Name: RADHA ALMANZA Room #: 240-P ADM IN M.R.#: [id number] Admission: 02/03/17 Attend Phys: Edith Encinas MD Discharge: Date of : 39 Report #: [id number] THIS REPORT FOR: //name// CC: Kirstin Encinas DATE OF SERVICE: 02/03/2017 CHIEF COMPLAINT: Altered mental status. HISTORY OF PRESENT ILLNESS: The patient is a 76-year-old female known to me from recent hospitalization and currently on [address] [place] [address] Rehab, was transferred back down to the acute care side secondary to altered mental status. The patient has a history of cirrhosis secondary to sarcoidosis, recent hepatic encephalopathy, on lactulose, developed decrease in level of consciousness this morning. In addition to that she also had notable myoclonus. She was not responding, apparently this occurred since early this morning. The Rapid response team was activated. Her workup included ammonia level that turned out to be elevated at 226. CT of the head without contrast was negative for any acute process. Both myself and Dr. Marcum saw her at the bedside shortly after Rapid Response was called. She was transferred down to the ICU for further management and care. She has been getting lactulose twice a day prior to coming in. She is also getting Xifaxan but that was discontinued because of leg swelling. She was attributing the leg swelling to the Xifaxan. PAST MEDICAL HISTORY: As stated, cirrhosis secondary to sarcoidosis, diabetes, diabetic neuropathy, hypothyroidism, osteoporosis. PAST SURGICAL HISTORY: None. FAMILY HISTORY: Reviewed and noncontributory. MEDICATIONS: Prior to being transferred, she was on lactulose 20 g b.i.d., aspirin 81 daily, vitamin D 1000 units daily, Lasix 40 daily, Neurontin 900 t.i.d., on sliding scale insulin, Synthroid 75 mcg daily, probiotic one daily, propranolol 10 mg b.i.d., Protonix 40 daily, OxyIR, p.r.n. nystatin, spironolactone 50 b.i.d., ursodiol 300 b.i.d. ALLERGIES: PENICILLIN G, reaction unknown. PHYSICAL EXAMINATION: VITAL SIGNS: Temperature 98, pulse of 90, blood pressure 104/46, O2 sat 96% on room air. GENERAL: She is awake. Her eyes are open, but she is unresponsive. Pupils are 8 mm and reactive. Her arms are swaying, but very rigidly. She seemed to be moving [place] [address] HISTORY AND PHYSICAL Name: RADHA ALMANZA Room #: 240-P [facility] IN M.R.#: [id number] Admission: 02/03/17 Attend Phys: Edith Encinas MD Discharge: Date of : 39 Report #: [id number] HEENT: Normocephalic, atraumatic. Oropharynx is clear. CARDIOVASCULAR: Regular rate and rhythm. No murmurs. LUNGS: Clear to auscultation bilaterally. No crackles or wheeze. ABDOMEN: Soft, no distention or tenderness. EXTREMITIES: No edema. NEUROLOGIC: The patient is unresponsive. She seems to be moving her arms in a very rigid manner. Moves her lower extremity, but not following commands at this time. LABS AND TESTING: UA showed 3+ leukocyte esterase. Lactic acid was 2.3. Sugars have been 200s, ammonia is 226. Sodium 140, potassium 4.2, BUN and creatinine of 14 and 1.4, AST of 253, total bilirubin 4.8. Alkaline phosphatase 239, ALT 154, albumin is 1.4. CT of the head without contrast was negative. INR is 1.5, H and H of 10 and 28, platelets 46. White count of 3.9. ABG, pH of 7.54, pCO2 of 34, pO2 of 116, lactate 2.10, O2 sat 97% on 2 liters. ASSESSMENT AND PLAN: 1. Hepatic encephalopathy. We will go ahead and put NG tube down and increase her lactulose dose. I also spoke with GI and likely restart her Xifaxan as well. As there were some initial concerns about seizure activity, Dr. Marcum is following. We will defer to him for any additional testing and need for AEDs. 2. Cirrhosis secondary to sarcoidosis. Continue her other meds including her diuretic, . 3. Sarcoidosis. I will verify whether she was on any scheduled medications for this and resume. 4. Diabetes. Continue sliding scale insulin. 5. Severe protein calorie malnutrition. We will continue IV fluids for now and resume orals when able. Continue other vitamin supplementation. 6. History of right hip pain. The patient completed steroids already. She will continue outpatient followup with Ortho. 7. Hypothyroidism. Resume her Synthroid. 8. Deep venous thrombosis prophylaxis, SCDs. By: 1300 1413 My Zandra Encinas MD /nt
--- NOTE | ~2017-02-03 | HC ---
[facility] [place] [address] CONSULTATION Name: RADHA ALMANZA Room #: 243-P ADM IN M.R.#: [id number] Admission: 02/03/17 Attend Phys: Edith Encinas MD Discharge: Date of : 39 Report #: [id number] THIS REPORT FOR: //name// CC: Kirstin Encinas DATE OF SERVICE: 02/11/2017 REASON FOR CONSULTATION: Acute kidney injury. HISTORY OF PRESENT ILLNESS: This 76-year-old female has a very complicated medical history which includes advanced chronic liver disease secondary to sarcoidosis. She has longstanding hypertension. She has known esophageal varices and recurrent hepatic encephalopathy related to her advanced liver disease. She also has a recently diagnosed Enterobacter cloacae, urinary tract infection, on IV antibiotics. The patient's serum creatinine on admission was 1.1. It has risen to a current value of 2.2 and renal consultation is requested for further evaluation and treatment. The patient has developed significant hypotension as well as altered mental status. She has been treated with lactulose with significant diarrhea and her oral intake has been compromised. 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 She has been managed with lactulose. She has known diabetes mellitus, peripheral neuropathy, hypothyroidism, sarcoidosis and osteoporosis. MEDICATIONS: On admission include lactulose, aspirin, vitamin D, Lasix, Neurontin, sliding scale insulin, Synthroid, probiotic, propranolol, Protonix, OxyIR, nystatin, spironolactone and ursodiol ALLERGIES: Reported to PENICILLIN. The remainder of the family history, personal and social history and review of systems are not obtainable from this poorly communicative patient. PHYSICAL EXAMINATION: GENERAL: Reveals a well-developed, chronically ill, debilitated female, in no acute distress. She has an NG tube in place with tube feedings running. VITAL SIGNS: Blood pressure 88/38, pulse 80, respirations 16. SKIN: Warm and dry. There is poor turgor noted. There is no clubbing, cyanosis or edema noted. Mucous membranes are dry. There is no JVD present. HEENT: The head is normocephalic and atraumatic. The sclerae are icteric. The pharynx is benign. NECK: Supple. [facility] [address] [place] [address] CONSULTATION Name: RADHA ALMANZA Room #: [facility] IN M.R.#: [id number] Admission: 02/03/17 Attend Phys: Edith Encinas MD Discharge: Date of : 39 Report #: [id number] LUNGS: Iniguez reveal scattered rhonchi without evidence of consolidation. CARDIOVASCULAR: Reveals a regular rate and rhythm without rub. ABDOMEN: Somewhat protuberant with suggestion of shifting dullness. There is no palpable mass or organomegaly. There is a Gautam catheter in place draining a small amount of appearing urine. NEUROLOGIC: Reveals the patient to be lethargic and poorly responsive though she is observed to move all extremities without evidence of focal neurologic deficit. Laboratory studies available at this time include sodium 141, potassium 4.9, chloride 113, CO2 19, BUN 33, creatinine 2.2, glucose 210, calcium 8.7. White blood cell count 7800, hemoglobin 8.6, hematocrit 24.9, platelet count 46,000. Urinalysis is not available. ASSESSMENT: 1. Acute kidney injury in this patient with hypotension and apparent volume depletion related to lactulose therapy and poor oral intake. I will increase isotonic bicarbonate containing IV fluid administration. We will obtain a current urinalysis as well as urine for sodium, creatinine and protein. Clearly, the patient has advanced multisystem disease related to her underlying sarcoidosis and diabetes mellitus. I have had a discussion today with the patient's son who wishes to pursue aggressive medical management at this point in time, but may warrant reconsideration if she fails to respond to initial therapy. 2. Hepatic encephalopathy and cirrhosis related to sarcoid liver disease. 3. Diabetes mellitus. 4. General debility. PLAN: As outlined above. Please see orders. <ELECTRONICALLY SIGNED> By: Dustin Lora MD 02/15/17 0747 1453 2224 Dustin Lora MD /nt
--- NOTE | ~2017-02-03 | HC ---
[facility] [place] [address] CONSULTATION Name: RADHA ALMANZA Room #: 453-P ADM IN M.R.#: [id number] Admission: 02/03/17 Attend Phys: Edith Encinas MD Discharge: Date of : 39 Report #: [id number] THIS REPORT FOR: //name// CC: Kirstin Encinas DATE OF SERVICE: 02/03/2017 HISTORY OF PRESENT ILLNESS: This is a 76-year-old female patient who is not able to provide any history at all. The history is taken from the record because no family member is available. I talked to the nurses on the rehab floor and talked to the GI. This patient was admitted with hepatic encephalopathy and subsequently was transferred to rehab. According to the nurses, she was doing better yesterday and then she became unresponsive today. Blood workup done and looks like all her liver function has deteriorated. Her ammonia level is markedly high. She had UTI before and looks like UTI also has become worse. She had a CT scan of the head, which did not show any acute changes. EEG does not show any active seizure activity, but it looks like she was having some seizure-like activities when I saw her. EEG is masked by a lot of artifact. REVIEW OF SYSTEMS: Indicate it is pretty extensive. She has a history of cirrhosis. She has a history of sarcoidosis. She had a lower extremity edema. I do not know whether she had a history of stroke or not. This was her relevant 14-point review of system. PAST MEDICAL HISTORY: Positive for cirrhosis. FAMILY HISTORY: Unavailable. SOCIAL HISTORY: She came from [facility], none of the family member is available. She apparently has a son and multiple other family members involved in her care, but I do not have access to them and we will try to contact them. Record does indicate she may have a past history of neuropathy, but socially she does not drink or smoke. PHYSICAL EXAMINATION: Her examination was carried out multiple times. This patient is not responsive. She does not respond much to the painful or verbal stimuli, making it impossible to do her cranial nerve examination, which was attempted as well as speech, memory and fund of knowledge. I cannot tell about the neuromuscular examination either. I do not think this patient has any meningeal sign. Her blood pressure is 105/41, respirations are 14, and pulse is 65. Lab indicates she has a marked urinary tract infection. Her white count actually has decreased to 3.9. Her platelet count is only 46. Her protime is increased to 15, but she has no breathing in the CT. She is an average build individual who does not appear to have any dysmorphic features of eyes, ears, [facility] [address] [place] [address] CONSULTATION Name: RADHA ALMANZA Room #: 453-P [facility] IN M.R.#: [id number] Admission: 02/03/17 Attend Phys: Edith Encinas MD Discharge: Date of : 39 Report #: [id number] and face. I cannot tell about her hearing. Heart looks stable. IMPRESSION: This patient appeared to have encephalopathy. Central nervous system infection is possible, but consider unlikely. RECOMMENDATIONS: 1. We will continue Keppra for the time being. 2. We will see how she does by treating her hepatic dysfunction and UTI. 3. Spinal tap will be dangerous at this time especially with platelet count, and we will hold that. Thank you very much for this referral. <ELECTRONICALLY SIGNED> By: Franky Marcum MD 02/08/17 1226 1752 0132 Franky Marcum MD /nt
[2017-02-03 09:59] LABS: ABG SAMPLE TYPE ARTERIAL; BE(vivo) 6.9 mmol/L (-2 to +3); HCO3 29.5 mmol/L (22.0-26.0); O2(CT) 15.1 mL/dL (15.0-23.0); O2Hb 97.3 % (92.0-98.0); PCO2 34.6 mmHg (35.0-45.0); PO2 116.6 mmHg (80.0-100.0); STICK SITE R.BRACHIAL; pH 7.549 (7.360-7.450); sO2 98.7 % (92.0-98.0); tCO2 30.6 mmol/L (24.0-30.0)
[2017-02-03 10:59] LABS: TROPONIN-I < 0.04 ng/mL (<0.04-0.07)
[2017-02-03 12:51] LABS: URINE BILIRUBIN NEGATIVE (Negative); URINE BLOOD 3+ (Negative); URINE COLOR YELLOW; URINE GLUCOSE-RANDOM* TRACE (Negative); URINE KETONES NEGATIVE (Negative); URINE LEUKOCYTES-REFLEX 3+ (Negative); URINE PROTEIN (DIPSTICK) 1+ (Negative); URINE SPECIFIC GRAVITY 1.015 (1.003-1.035)
[2017-02-03 13:01] LABS: SQUAMOUS 0-3 Few /LPF (0-3); URINE WBC-REFLEX >25 Many /HPF (0-5)
[2017-02-03 13:02] LABS: CASTS None Seen /LPF (None Seen); CRYSTALS None Seen /LPF (None Seen)
[2017-02-04] VITALS (67 sets, daily range): BP systolic 79–157; BP diastolic 34–144
[2017-02-04 04:13] LABS: ABSOLUTE NEUTROPHILS 2.7 thou/uL (1.4-8.2); BASOPHILS 0.4 % (0.0-2.0); EOSINOPHILS 3.8 % (0.0-3.0); HEMATOCRIT 32.3 % (37.0-47.0); HEMOGLOBIN 11.3 gm/dL (12.0-15.0); LYMPHOCYTES 30.2 % (24.0-44.0); MCHC 35.1 g/dL (28.0-37.0); MCV 99.6 fL (80.0-100.0); MONOCYTES 11.1 % (1.0-8.0); PLATELET COUNT 55 thou/uL (150-400); POLYS 54.5 % (36.0-66.0); RBC 3.24 mil/uL (4.20-5.00); RDW 25.6 % (10.5-14.5); WBC 4.9 thou/uL (4.0-11.0)
[2017-02-04 04:26] LABS: MANUAL DIFF NO
[2017-02-04 04:34] LABS: ALBUMIN 1.5 g/dL (3.4-5.0); CALCIUM 8.4 mg/dL (8.5-10.1); CREATININE 1.2 mg/dL (0.6-1.0); POTASSIUM 3.8 mmol/L (3.5-5.1); TOTAL BILIRUBIN 6.2 mg/dL (<0.1-1.0)
[2017-02-04 04:54] LABS: TOTAL PROTEIN 5.7 g/dL (6.4-8.2)
[2017-02-05] VITALS (30 sets, daily range): BP systolic 70–147; BP diastolic 38–74
[2017-02-05 04:36] LABS: WBC 4.3 thou/uL (4.0-11.0)
[2017-02-05 04:37] LABS: HEMATOCRIT 32.3 % (37.0-47.0); HEMOGLOBIN 11.3 gm/dL (12.0-15.0); MCH 34.9 pg (26.0-34.0); MCHC 34.8 g/dL (28.0-37.0); MCV 100.3 fL (80.0-100.0); RBC 3.22 mil/uL (4.20-5.00); RDW 24.5 % (10.5-14.5)
[2017-02-05 04:50] LABS: ALBUMIN 1.4 g/dL (3.4-5.0); CALCIUM 8.3 mg/dL (8.5-10.1); CREATININE 1.1 mg/dL (0.6-1.0); POTASSIUM 3.3 mmol/L (3.5-5.1); TOTAL BILIRUBIN 7.4 mg/dL (<0.1-1.0)
[2017-02-05 05:14] LABS: TOTAL PROTEIN 5.3 g/dL (6.4-8.2)
[2017-02-06] VITALS (26 sets, daily range): BP systolic 84–118; BP diastolic 39–80
[2017-02-06 05:04] LABS: ALBUMIN 1.3 g/dL (3.4-5.0); POTASSIUM 3.2 mmol/L (3.5-5.1); TOTAL BILIRUBIN 6.7 mg/dL (<0.1-1.0)
[2017-02-06 05:10] LABS: INR 1.5; PROTIME 15.4 Seconds (9.3-11.4)
[2017-02-06 05:17] LABS: TOTAL PROTEIN 5.3 g/dL (6.4-8.2)
[2017-02-06 12:40] LABS: CALCIUM 8.1 mg/dL (8.5-10.1); MAGNESIUM 1.5 mg/dL (1.8-2.4); POTASSIUM 3.6 mmol/L (3.5-5.1)
[2017-02-07] VITALS (18 sets, daily range): BP systolic 83–103; BP diastolic 37–62
[2017-02-07 05:26] LABS: RDW 23.4 % (10.5-14.5); WBC 5.2 thou/uL (4.0-11.0)
[2017-02-07 05:28] LABS: HEMATOCRIT 30.1 % (37.0-47.0); HEMOGLOBIN 10.4 gm/dL (12.0-15.0); MCH 35.3 pg (26.0-34.0); MCHC 34.6 g/dL (28.0-37.0); MCV 101.8 fL (80.0-100.0); RBC 2.96 mil/uL (4.20-5.00)
[2017-02-07 05:41] LABS: ALBUMIN 1.3 g/dL (3.4-5.0); CALCIUM 8.4 mg/dL (8.5-10.1); POTASSIUM 3.7 mmol/L (3.5-5.1); TOTAL BILIRUBIN 5.2 mg/dL (<0.1-1.0)
[2017-02-07 05:54] LABS: TOTAL PROTEIN 5.2 g/dL (6.4-8.2)
[2017-02-08 04:10] VITALS: BP 118/52
[2017-02-08 05:05] LABS: HEMOGLOBIN 10.1 gm/dL (12.0-15.0)
[2017-02-08 05:06] LABS: HEMATOCRIT 29.1 % (37.0-47.0); MCH 34.6 pg (26.0-34.0); MCHC 34.6 g/dL (28.0-37.0); MCV 99.9 fL (80.0-100.0); RBC 2.91 mil/uL (4.20-5.00); RDW 22.8 % (10.5-14.5); WBC 4.6 thou/uL (4.0-11.0)
[2017-02-08 05:18] LABS: INR 1.5; PROTIME 15.7 Seconds (9.3-11.4)
[2017-02-08 05:20] LABS: ALBUMIN 1.3 g/dL (3.4-5.0); CALCIUM 8.5 mg/dL (8.5-10.1); CREATININE 1.1 mg/dL (0.6-1.0); POTASSIUM 3.5 mmol/L (3.5-5.1); TOTAL PROTEIN 5.1 g/dL (6.4-8.2)
[2017-02-08 07:27] VITALS: BP 94/56
[2017-02-08 11:40] VITALS: BP 103/44
[2017-02-08 16:38] VITALS: BP 90/46
[2017-02-08 20:27] VITALS: BP 133/81
[2017-02-09 03:58] VITALS: BP 100/40
[2017-02-09 05:49] LABS: CALCIUM 8.6 mg/dL (8.5-10.1); CREATININE 1.2 mg/dL (0.6-1.0); POTASSIUM 3.7 mmol/L (3.5-5.1)
[2017-02-09 08:43] VITALS: BP 113/94
[2017-02-09 12:29] VITALS: BP 148/90
[2017-02-09 15:54] VITALS: BP 140/85
[2017-02-09 20:47] VITALS: BP 101/57
[2017-02-10 04:08] VITALS: BP 114/53
[2017-02-10 04:38] LABS: CALCIUM 9.1 mg/dL (8.5-10.1); CREATININE 1.3 mg/dL (0.6-1.0); POTASSIUM 4.5 mmol/L (3.5-5.1)
[2017-02-10 07:38] VITALS: BP 101/48
[2017-02-10 11:40] VITALS: BP 140/60
[2017-02-10 16:13] VITALS: BP 79/41
[2017-02-10 19:28] VITALS: BP 84/38
[2017-02-11 03:57] VITALS: BP 84/31
[2017-02-11 06:04] LABS: CALCIUM 8.7 mg/dL (8.5-10.1); CREATININE 2.2 mg/dL (0.6-1.0); POTASSIUM 4.9 mmol/L (3.5-5.1)
[2017-02-11 08:35] VITALS: BP 88/38
[2017-02-11 10:08] LABS: HEMATOCRIT 26.4 % (37.0-47.0); MCHC 33.9 g/dL (28.0-37.0); MCV 103.5 fL (80.0-100.0); RBC 2.56 mil/uL (4.20-5.00); WBC 7.7 thou/uL (4.0-11.0)
[2017-02-11 12:14] VITALS: BP 131/53
[2017-02-11 16:00] VITALS: BP 95/69
[2017-02-11 16:08] LABS: CALCIUM 8.4 mg/dL (8.5-10.1); CREATININE 2.3 mg/dL (0.6-1.0)
[2017-02-11 19:20] VITALS: BP 111/52
[2017-02-12] VITALS (35 sets, daily range): BP systolic 66–204; BP diastolic 33–179
[2017-02-12 06:34] LABS: HEMOGLOBIN 8.6 gm/dL (12.0-15.0)
[2017-02-12 06:36] LABS: HEMATOCRIT 24.9 % (37.0-47.0); MCH 35.4 pg (26.0-34.0); MCHC 34.3 g/dL (28.0-37.0); MCV 103.2 fL (80.0-100.0); RBC 2.41 mil/uL (4.20-5.00); RDW 21.8 % (10.5-14.5); WBC 7.8 thou/uL (4.0-11.0)
[2017-02-12 06:50] LABS: ALBUMIN 1.1 g/dL (3.4-5.0); CALCIUM 8.4 mg/dL (8.5-10.1); CREATININE 2.4 mg/dL (0.6-1.0); MAGNESIUM 2.3 mg/dL (1.8-2.4); PHOSPHORUS 2.8 mg/dL (2.5-4.9); POTASSIUM 5.4 mmol/L (3.5-5.1)
[2017-02-12 09:58] LABS: ABG SAMPLE TYPE ARTERIAL; BE(vivo) -5.5 mmol/L (-2 to +3); HCO3 18.6 mmol/L (22.0-26.0); LACTATE 1.05 mmol/L (0.5-2.0); O2(CT) 12.6 mL/dL (15.0-23.0); O2Hb 94.6 % (92.0-98.0); STICK SITE R.BRACHIAL; pH 7.395 (7.360-7.450); sO2 96.3 % (92.0-98.0); tCO2 19.5 mmol/L (24.0-30.0)
[2017-02-12 12:12] LABS: INR 1.6; PROTIME 16.1 Seconds (9.3-11.4)
[2017-02-12 12:15] LABS: ALBUMIN 1.1 g/dL (3.4-5.0); DIRECT BILIRUBIN 3.4 mg/dL (<0.1-0.3); TOTAL BILIRUBIN 3.7 mg/dL (<0.1-1.0)
[2017-02-12 12:29] LABS: TOTAL PROTEIN 4.8 g/dL (6.4-8.2)
[2017-02-12 14:31] LABS: URINE BILIRUBIN 2+ (Negative); URINE BLOOD 3+ (Negative); URINE COLOR YELLOW; URINE GLUCOSE-RANDOM* NEGATIVE (Negative); URINE KETONES NEGATIVE (Negative); URINE NITRITE NEGATIVE (Negative); URINE PROTEIN (DIPSTICK) TRACE (Negative); URINE UROBILINOGEN 0.2 E.U./dl (0.2-1.0)
[2017-02-12 14:33] LABS: ICTOTEST (BILI CONFIRMATORY) Positive (Negative)
[2017-02-12 14:39] LABS: COARSE GRANULAR CASTS 0-3 Few /LPF (None Seen); HYALINE CASTS 4-10 Moderate /LPF (None Seen); SQUAMOUS 4-10 Moderate /LPF (0-3)
[2017-02-12 14:40] LABS: BACTERIA 1-9 Few /HPF (None Seen); CRYSTALS None Seen /LPF (None Seen); URINE WBC 6-15 Few /HPF (0-5)
[2017-02-13 05:13] LABS: HEMATOCRIT 25.2 % (37.0-47.0); HEMOGLOBIN 8.9 gm/dL (12.0-15.0); MCH 35.7 pg (26.0-34.0); MCHC 35.2 g/dL (28.0-37.0); MCV 101.4 fL (80.0-100.0); RBC 2.49 mil/uL (4.20-5.00); RDW 21.1 % (10.5-14.5); WBC 7.2 thou/uL (4.0-11.0)
[2017-02-13 05:20] LABS: CALCIUM 7.4 mg/dL (8.5-10.1); CREATININE 1.5 mg/dL (0.6-1.0); POTASSIUM 5.1 mmol/L (3.5-5.1); TOTAL BILIRUBIN 4.2 mg/dL (<0.1-1.0); TOTAL PROTEIN 4.8 g/dL (6.4-8.2)
[2017-02-14 03:05] VITALS: BP 103/27
[2017-02-14 05:43] LABS: HEMOGLOBIN 9.1 gm/dL (12.0-15.0); RDW 20.4 % (10.5-14.5); WBC 6.3 thou/uL (4.0-11.0)
[2017-02-14 05:45] LABS: HEMATOCRIT 25.4 % (37.0-47.0); MCH 36.2 pg (26.0-34.0); MCHC 35.8 g/dL (28.0-37.0); MCV 101.2 fL (80.0-100.0); RBC 2.51 mil/uL (4.20-5.00)
[2017-02-14 05:58] LABS: ALBUMIN 1.1 g/dL (3.4-5.0); CALCIUM 7.6 mg/dL (8.5-10.1); CREATININE 1.1 mg/dL (0.6-1.0); PHOSPHORUS 2.1 mg/dL (2.5-4.9); POTASSIUM 4.7 mmol/L (3.5-5.1)
[2017-02-14 11:07] VITALS: BP 106/56
[2017-02-14 18:39] VITALS: BP 160/67
[2017-02-14 20:00] VITALS: BP 102/47
[2017-02-15] VITALS (16 sets, daily range): BP systolic 88–125; BP diastolic 42–87
[2017-02-15 04:51] LABS: HEMATOCRIT 22.9 % (37.0-47.0); HEMOGLOBIN 7.9 gm/dL (12.0-15.0); MCH 35.5 pg (26.0-34.0); MCHC 34.7 g/dL (28.0-37.0); MCV 102.4 fL (80.0-100.0); RBC 2.24 mil/uL (4.20-5.00); RDW 20.8 % (10.5-14.5); WBC 5.2 thou/uL (4.0-11.0)
[2017-02-15 05:06] LABS: CALCIUM 7.2 mg/dL (8.5-10.1); CREATININE 1.1 mg/dL (0.6-1.0); MAGNESIUM 1.7 mg/dL (1.8-2.4); PHOSPHORUS 2.2 mg/dL (2.5-4.9); POTASSIUM 4.3 mmol/L (3.5-5.1); TOTAL BILIRUBIN 3.2 mg/dL (<0.1-1.0)
[2017-02-15 05:28] LABS: TOTAL PROTEIN 4.7 g/dL (6.4-8.2)
[2017-02-16] VITALS (7 sets, daily range): BP systolic 93–116; BP diastolic 35–64
[2017-02-16 06:44] LABS: HEMOGLOBIN 7.8 gm/dL (12.0-15.0); MCH 36.2 pg (26.0-34.0)
[2017-02-16 06:46] LABS: HEMATOCRIT 22.2 % (37.0-47.0); MCHC 35.1 g/dL (28.0-37.0); MCV 103.2 fL (80.0-100.0); RBC 2.15 mil/uL (4.20-5.00); RDW 20.9 % (10.5-14.5); WBC 5.2 thou/uL (4.0-11.0)
[2017-02-16 06:57] LABS: CALCIUM 7.5 mg/dL (8.5-10.1); CREATININE 1.1 mg/dL (0.6-1.0); POTASSIUM 5.2 mmol/L (3.5-5.1); TOTAL BILIRUBIN 3.1 mg/dL (<0.1-1.0); TOTAL PROTEIN 4.5 g/dL (6.4-8.2)
[2017-02-17 05:06] VITALS: BP 127/90
[2017-02-17 09:07] VITALS: BP 108/39
[2017-02-17 13:38] LABS: URINE BILIRUBIN 1+ (Negative); URINE BLOOD 3+ (Negative); URINE COLOR YELLOW; URINE GLUCOSE-RANDOM* NEGATIVE (Negative); URINE KETONES NEGATIVE (Negative); URINE LEUKOCYTES-REFLEX 1+ (Negative); URINE PROTEIN (DIPSTICK) NEGATIVE (Negative); URINE SPECIFIC GRAVITY 1.015 (1.003-1.035); URINE UROBILINOGEN 0.2 E.U./dl (0.2-1.0)
[2017-02-17 13:42] LABS: ICTOTEST (BILI CONFIRMATORY) Positive (Negative)
[2017-02-17 13:43] LABS: SQUAMOUS 0-3 Few /LPF (0-3)
[2017-02-17 13:44] LABS: CASTS None Seen /LPF (None Seen); CRYSTALS None Seen /LPF (None Seen); URINE WBC-REFLEX 0-5 Rare /HPF (0-5)
[2017-02-17 16:07] VITALS: BP 130/68
[2017-02-17 19:30] VITALS: BP 104/78
[2017-02-18 03:19] VITALS: BP 98/50
[2017-02-18 04:53] LABS: HEMATOCRIT 22.6 % (37.0-47.0); MCHC 35.6 g/dL (28.0-37.0); RBC 2.22 mil/uL (4.20-5.00); WBC 5.2 thou/uL (4.0-11.0)
[2017-02-18 04:56] LABS: MCH 36.2 pg (26.0-34.0); MCV 101.8 fL (80.0-100.0); RDW 21.1 % (10.5-14.5)
[2017-02-18 05:05] LABS: MANUAL DIFF YES
[2017-02-18 05:06] LABS: PLATELET COUNT 37 thou/uL (150-400)
[2017-02-18 05:10] LABS: CALCIUM 7.3 mg/dL (8.5-10.1); CREATININE 1.1 mg/dL (0.6-1.0); POTASSIUM 5.1 mmol/L (3.5-5.1); TOTAL PROTEIN 4.5 g/dL (6.4-8.2)
[2017-02-18 06:01] LABS: ABSOLUTE NEUTROPHILS 3.2 thou/uL (1.4-8.2); ANISOCYTOSIS 2+; MACROCYTES 2+; NUCLEATED RBCS 2 /100WBC; TOTAL CELL COUNT 100
[2017-02-18 06:02] LABS: POLYCHROMASIA 1+
[2017-02-18 06:03] LABS: LARGE PLATELETS FEW
[2017-02-18 08:02] VITALS: BP 96/41
[2017-02-18 12:41] VITALS: BP 130/77
[2017-02-18 16:57] VITALS: BP 95/72
[2017-02-18 20:33] VITALS: BP 94/48
[2017-02-19 04:00] VITALS: BP 114/47
[2017-02-19 07:39] VITALS: BP 121/55
[2017-02-19 11:48] VITALS: BP 98/50
[2017-02-19 15:29] VITALS: BP 114/90
[2017-02-19 20:14] VITALS: BP 104/35
[2017-02-20 04:14] VITALS: BP 90/47
[2017-02-20 06:09] LABS: HEMATOCRIT 23.9 % (37.0-47.0); HEMOGLOBIN 8.5 gm/dL (12.0-15.0); MCH 36.2 pg (26.0-34.0); MCHC 35.6 g/dL (28.0-37.0); MCV 101.7 fL (80.0-100.0); RBC 2.35 mil/uL (4.20-5.00); RDW 20.1 % (10.5-14.5); WBC 5.4 thou/uL (4.0-11.0)
[2017-02-20 06:23] LABS: MANUAL DIFF YES; PLATELET COUNT 41 thou/uL (150-400)
[2017-02-20 06:31] LABS: ALBUMIN 0.9 g/dL (3.4-5.0); CALCIUM 7.7 mg/dL (8.5-10.1); MAGNESIUM 1.8 mg/dL (1.8-2.4); POTASSIUM 4.9 mmol/L (3.5-5.1); TOTAL BILIRUBIN 3.2 mg/dL (<0.1-1.0); TOTAL PROTEIN 4.7 g/dL (6.4-8.2)
[2017-02-20 07:16] LABS: ABSOLUTE NEUTROPHILS 3.2 thou/uL (1.4-8.2); ANISOCYTOSIS 2+; MACROCYTES 1+; METAMYELOCYTES 2 %; TOTAL CELL COUNT 100
[2017-02-20 07:17] LABS: NUCLEATED RBCS 1 /100WBC
[2017-02-20 07:41] VITALS: BP 109/44
[2017-02-20 11:46] VITALS: BP 129/41
[2017-02-20 15:42] VITALS: BP 114/45
[2017-02-20 18:02] LABS: INR 1.5; PROTIME 15.6 Seconds (9.3-11.4)
[2017-02-20 19:48] VITALS: BP 120/46
[2017-02-21 03:18] VITALS: BP 106/87
[2017-02-21 07:15] VITALS: BP 115/75
[2017-02-21 12:00] VITALS: BP 129/64
[2017-02-21 14:44] VITALS: BP 149/58
[2017-02-21 21:27] VITALS: BP 126/62
[2017-02-22 07:17] VITALS: BP 115/54
[2017-02-22 09:36] VITALS: BP 110/78
[2017-02-22 12:39] VITALS: BP 106/65
[2017-02-22 16:13] VITALS: BP 121/57
[2017-02-22] MEDS ORDERED: XIFAXAN550 MG PO (18:15)
[2017-02-22] MEDS ORDERED: LACTULOSE10 GM/153 PER TUBE (18:15)
[2017-02-22] MEDS ORDERED: MSL20MG/ML SUBLING (18:15)
== END 2017-02-22 20:10 | disposition hospice, inpatient (51) | DRG 441 ==
LOC: TBA 08:29 → ICU 09:28 → 4W 02-07 15:41 → ICU 02-12 09:38 → 4W 02-15 11:21
PROVIDERS: Family Medicine; Hospitalist; Internal Medicine; Internal Medicine Endocrinology, Diabetes & Metabolism; Internal Medicine Gastroenterology; Internal Medicine Nephrology; Nurse Practitioner Adult Health
DX: K72.90 Hepatic failure, unspecified without coma (principal); E43 Unspecified severe protein-calorie malnutrition; G92 Toxic encephalopathy; N17.9 Acute kidney failure, unspecified; N39.0 Urinary tract infection, site not specified; I85.00 Esophageal varices without bleeding; R18.8 Other ascites; E87.0 Hyperosmolality and hypernatremia; E87.2 Acidosis; D86.9 Sarcoidosis, unspecified; K74.60 Unspecified cirrhosis of liver; I10 Essential (primary) hypertension; M81.0 Age-related osteoporosis without current pathological fracture; E03.9 Hypothyroidism, unspecified; I95.9 Hypotension, unspecified; E86.9 Volume depletion, unspecified; R25.1 Tremor, unspecified; D64.9 Anemia, unspecified; E87.6 Hypokalemia; D69.6 Thrombocytopenia, unspecified; I86.4 Gastric varices; R19.7 Diarrhea, unspecified; E11.42 Type 2 diabetes mellitus with diabetic polyneuropathy; Z88.0 Allergy status to penicillin; Z68.34 Body mass index [BMI] 34.0-34.9, adult; Z79.899 Other long term (current) drug therapy; Z79.82 Long term (current) use of aspirin; Z86.73 Personal history of transient ischemic attack (TIA), and cerebral infarction without residual deficits
CPT/HCPCS: 10045; 10047; 10078; 27000; 62110; 62900